=== PATIENT | male | born 1965 | race Caucasian/White ===

== ENCOUNTER 2016-11-20 22:08 | Emergency (ER) | payer SELFPAY ==
[~2016-11-20] VITALS: Ht 175.3 cm; Wt 80.8 kg
[2016-11-20 22:58] LABS: HEMATOCRIT 47.2 % (38.0-50.0); MCH 31.4 PG (29.0-34.0); MCV 89.9 FL (86-99); MEAN PLAT.VOLUME 9.1 uM^3 (9.0-12.4); PLATELET COUNT 246 K/uL (156-360); RBC DIS.WIDTH-CV 12.4 % (11.8-14.6); RBC DIS.WIDTH-SD 40.8 % (39-53); RED BLOOD COUNT 5.25 M/uL (4.00-5.50); WHITE BLOOD COUNT 7.9 K/uL (4.1-10.2)
[2016-11-20 23:02] LABS: CHLORIDE 109 mEq/L (99-109); POTASSIUM 3.8 mEq/L (3.7-5.4); SODIUM 140 mEq/L (136-147)
[2016-11-20 23:05] LABS: GLUCOSE 92 mg/dL (70-99)
[2016-11-20 23:06] LABS: ANION GAP 12 MEQ/L (2-14); TOTAL BILIRUBIN 0.4 mg/dL (0.0-1.0)
[2016-11-20 23:07] LABS: SERUM ETHYL ALCOHOL 192 mg/dL
[2016-11-20 23:08] LABS: ALKALINE PHOSPHATASE 97 IU/L (3-129); GFR ESTIMATE (CALCULATED) > 59 mL/min/
[2016-11-20 23:09] LABS: UREA NITROGEN (BUN) 11 mg/dL (9-23)
[2016-11-20 23:16] LABS: ADD MIUA? NO; BILIRUBIN NEGATIVE; BLOOD NEGATIVE; COLOR YELLOW ((YELLOW)); GLUCOSE (STRIP) NEGATIVE; KETONES NEGATIVE; LEUKOCYTES NEGATIVE; NITRITE NEGATIVE; PROTEIN (STRIP) NEGATIVE; SPECIFIC GRAVITY 1.013 (1.000-1.030); UCUL ADDED? NO; UROBILINOGEN 0.2 MG/DL (0.2-1.0)
[2016-11-20 23:37] LABS: AMPHETAMINE NEGATIVE (500 ng/mL); BARBITURATES NEGATIVE (200 ng/mL); BENZODIAZEPINES NEGATIVE (150 ng/mL); COCAINE NEGATIVE (150 ng/mL); INTERNAL CONTROLS VALID? YES; METHADONE NEGATIVE (200 ng/mL); METHAMPHETAMINE NEGATIVE (500 ng/mL); OPIATES (MORPHINE) NEGATIVE (100 ng/mL); OXYCODONE NEGATIVE (100 ng/mL); PHENCYCLIDINE NEGATIVE (25 ng/mL); PROPOXYPHENE NEGATIVE (300 ng/mL); THC CANNABINOIDS NEGATIVE (50 ng/mL); TRICYCLIC ANTIDEPRESSANTS NEGATIVE (300 ng/mL)
[2016-11-21 02:38] VITALS: BP 122/76
== END 2016-11-21 02:43 | disposition home or self-care (01) ==
LOC: EME 22:08
PROVIDERS: Emergency Medicine
DX: F32.9 Major depressive disorder, single episode, unspecified (principal); F10.129 Alcohol abuse with intoxication, unspecified; F43.23 Adjustment disorder with mixed anxiety and depressed mood; Z63.4 Disappearance and death of family member; F17.200 Nicotine dependence, unspecified, uncomplicated; Y90.6 Blood alcohol level of 120-199 mg/100 ml
CPT/HCPCS: 80053; 81003; 85027; 90837; 99281; 99285; G0480

== ENCOUNTER 2016-12-13 16:24 | Emergency (ER) | payer SELFPAY ==
[2016-12-13 16:54] LABS: EOSINOPHIL (%) 0.1 % (0-5); HEMATOCRIT 45.2 % (38.0-50.0); IMMATURE GRANULOCYTE (%) 0.2 % (0.0-0.7); IMMATURE GRANULOCYTE COUNT 0.3 K/uL; LYMPHOCYTE COUNT 1.2 K/uL (1.0-2.8); MCH 31.6 PG (29.0-34.0); MCHC 35.4 G/DL (30.0-36.0); MCV 89.3 FL (86-99); MEAN PLAT.VOLUME 9.1 uM^3 (9.0-12.4); MONOCYTE (%) 5.5 % (3-12); MONOCYTE COUNT 0.9 K/uL (0-0.8); NEUTROPHIL COUNT 14.5 K/uL (1.8-6.4); PLATELET COUNT 255 K/uL (156-360); RBC DIS.WIDTH-CV 12.4 % (11.8-14.6); RBC DIS.WIDTH-SD 39.6 % (39-53); RED BLOOD COUNT 5.06 M/uL (4.00-5.50)
[2016-12-13 16:57] LABS: WHITE BLOOD COUNT 16.6 K/uL (4.1-10.2)
[2016-12-13 17:04] LABS: CHLORIDE 106 mEq/L (99-109); SODIUM 138 mEq/L (136-147)
[2016-12-13 17:05] LABS: AMYLASE 66 IU/L (1-118)
[2016-12-13 17:06] LABS: GLUCOSE 121 mg/dL (70-99)
[2016-12-13 17:08] LABS: ANION GAP 10 MEQ/L (2-14); TOTAL BILIRUBIN 0.3 mg/dL (0.0-1.0)
[2016-12-13 17:09] LABS: SERUM ETHYL ALCOHOL < 10 mg/dL
[2016-12-13 17:10] LABS: ALKALINE PHOSPHATASE 112 IU/L (3-129); GFR ESTIMATE (CALCULATED) > 59 mL/min/
[2016-12-13 17:11] LABS: UREA NITROGEN (BUN) 10 mg/dL (9-23)
[2016-12-13 17:12] LABS: DIRECT BILIRUBIN 0.2 mg/dL (0.0-0.3)
[2016-12-13 17:14] LABS: LIPASE 30 U/L (1.0-51.0)
[2016-12-13 17:15] VITALS: BP 167/93
[2016-12-13 17:39] LABS: BILIRUBIN NEGATIVE; BLOOD NEGATIVE; COLOR YELLOW ((YELLOW)); GLUCOSE (STRIP) NEGATIVE; KETONES NEGATIVE; LEUKOCYTES NEGATIVE; NITRITE NEGATIVE; PH, URINE 5.5 (5-8); PROTEIN (STRIP) TRACE; SPECIFIC GRAVITY 1.021 (1.000-1.030); UROBILINOGEN 0.2 MG/DL (0.2-1.0)
[2016-12-13 17:41] LABS: ADD MIUA? NO; UCUL ADDED? NO
[2016-12-13 18:02] LABS: AMPHETAMINE NEGATIVE (500 ng/mL); BARBITURATES NEGATIVE (200 ng/mL); BENZODIAZEPINES NEGATIVE (150 ng/mL); COCAINE NEGATIVE (150 ng/mL); INTERNAL CONTROLS VALID? YES; METHADONE NEGATIVE (200 ng/mL); METHAMPHETAMINE NEGATIVE (500 ng/mL); OPIATES (MORPHINE) NEGATIVE (100 ng/mL); OXYCODONE NEGATIVE (100 ng/mL); PHENCYCLIDINE NEGATIVE (25 ng/mL); PROPOXYPHENE NEGATIVE (300 ng/mL); THC CANNABINOIDS NEGATIVE (50 ng/mL); TRICYCLIC ANTIDEPRESSANTS NEGATIVE (300 ng/mL)
== END 2016-12-13 22:34 | disposition short-term general hospital (02) ==
LOC: TRA → EME 16:24 → TRA 22:34
PROVIDERS: Emergency Medicine
DX: S52.501B Unspecified fracture of the lower end of right radius, initial encounter for open fracture type I or II (principal); S52.601B Unspecified fracture of lower end of right ulna, initial encounter for open fracture type I or II; S22.31XA Fracture of one rib, right side, initial encounter for closed fracture; S82.54XA Nondisplaced fracture of medial malleolus of right tibia, initial encounter for closed fracture; M79.645 Pain in left finger(s); W11.XXXA Fall on and from ladder, initial encounter; Y93.89 Activity, other specified
CPT/HCPCS: 70450; 71260; 72125; 72129; 72132; 73080; 73090; 73110; 73130; 73610; 74177; 80048; 80076; 81003; 82150; 83690; 85025; 86850; 86900; 86901; 99281; 99285; G0480; J0690; J0744; J1170; J2405; J3010; J3370; J7030

== ENCOUNTER 2017-02-22 11:16 | Inpatient (IN) | payer OTHER ==
[~2017-02-22] VITALS: Ht 175.3 cm; Wt 78.4 kg
[2017-02-22 12:10] LABS: HEMATOCRIT 45.7 % (38.0-50.0); MCH 29.4 PG (29.0-34.0); MCHC 34.4 G/DL (30.0-36.0); MCV 85.6 FL (86-99); MEAN PLAT.VOLUME 9.2 uM^3 (9.0-12.4); PLATELET COUNT 253 K/uL (156-360); RBC DIS.WIDTH-CV 13.7 % (11.8-14.6); RBC DIS.WIDTH-SD 42.6 % (39-53); RED BLOOD COUNT 5.34 M/uL (4.00-5.50); WHITE BLOOD COUNT 10.7 K/uL (4.1-10.2)
[2017-02-22 12:17] LABS: AMPHETAMINE NEGATIVE (500 ng/mL); BARBITURATES NEGATIVE (200 ng/mL); BENZODIAZEPINES NEGATIVE (150 ng/mL); COCAINE PRESUMPTIVE POSITIVE (150 ng/mL); METHADONE NEGATIVE (200 ng/mL); METHAMPHETAMINE NEGATIVE (500 ng/mL); OPIATES (MORPHINE) NEGATIVE (100 ng/mL); OXYCODONE NEGATIVE (100 ng/mL); PHENCYCLIDINE NEGATIVE (25 ng/mL); PROPOXYPHENE NEGATIVE (300 ng/mL); THC CANNABINOIDS NEGATIVE (50 ng/mL); TRICYCLIC ANTIDEPRESSANTS NEGATIVE (300 ng/mL)
[2017-02-22 12:18] LABS: ADD MEDTOX COMMENT Y; INTERNAL CONTROLS VALID? YES
[2017-02-22 12:22] LABS: CHLORIDE 113 mEq/L (99-109); POTASSIUM 4.1 mEq/L (3.7-5.4)
[2017-02-22 12:23] LABS: SODIUM 144 mEq/L (136-147)
[2017-02-22 12:24] LABS: GLUCOSE 92 mg/dL (70-99)
[2017-02-22 12:26] LABS: ANION GAP 13 MEQ/L (2-14)
[2017-02-22 12:27] LABS: SERUM ETHYL ALCOHOL 282 mg/dL
[2017-02-22 12:28] LABS: GFR ESTIMATE (CALCULATED) > 59 mL/min/
[2017-02-22 12:30] LABS: UREA NITROGEN (BUN) 9 mg/dL (9-23)
[2017-02-22 12:31] LABS: SALICYLATE < 5.0 MG/DL (15-30)
[2017-02-22 21:29] VITALS: BP 127/79
[2017-02-22] MEDS ORDERED: BENADRYL50 MG PO (21:50)
[2017-02-22] MEDS ORDERED: TYLENOL REGULA325 MG PO (21:51)
[2017-02-23 08:14] VITALS: BP 157/84
[2017-02-23 15:57] VITALS: BP 159/96
[2017-02-23 19:25] VITALS: BP 170/93
[2017-02-24 08:09] VITALS: BP 133/86
[2017-02-24 15:22] VITALS: BP 144/81
[2017-02-25 07:50] VITALS: BP 122/82
[2017-02-25 15:21] VITALS: BP 125/78
[2017-02-26 09:23] VITALS: BP 102/62
[2017-02-26] MEDS ORDERED: TRAZODONE HCL50 MG PO (10:32)
[2017-02-26] MEDS ORDERED: CITALOPRAM HBR10 MG PO (10:32)
== END 2017-02-26 12:56 | disposition home or self-care (01) | DRG 881 ==
LOC: EME 11:16 → EDOF 20:24 → 1WEST 20:24
PROVIDERS: Emergency Medicine
DX: F32.9 Major depressive disorder, single episode, unspecified (principal); F14.10 Cocaine abuse, uncomplicated; F17.210 Nicotine dependence, cigarettes, uncomplicated; G47.00 Insomnia, unspecified; F14.90 Cocaine use, unspecified, uncomplicated; F10.10 Alcohol abuse, uncomplicated; Y90.8 Blood alcohol level of 240 mg/100 ml or more; Z72.89 Other problems related to lifestyle
CPT/HCPCS: 80048; 84999; 85027; 90839; 97150 GO; 97166 GO; 99281; 99285; G0480

== ENCOUNTER 2017-03-21 13:27 | Emergency (ER) | payer OTHER ==
[~2017-03-21] VITALS: Ht 175.3 cm; Wt 78.8 kg
[~2017-03-21 13:27] MED LIST: BENADRYL50 MG PO; CITALOPRAM HBR10 MG PO; TRAZODONE HCL50 MG PO; TYLENOL REGULA325 MG PO
[2017-03-21 15:12] VITALS: BP 139/81
== END 2017-03-21 15:25 | disposition home or self-care (01) ==
LOC: EXP 13:27 → EME 13:27 → EXP 15:25
PROC: 2W3GX1Z Immobilization of Right Thumb using Splint (ICD-10-PCS; principal; 2017-03-21)
DX: S52.91XD Unspecified fracture of right forearm, subsequent encounter for closed fracture with routine healing (principal); S62.001D Unspecified fracture of navicular [scaphoid] bone of right wrist, subsequent encounter for fracture with routine healing; F17.200 Nicotine dependence, unspecified, uncomplicated; W11.XXXD Fall on and from ladder, subsequent encounter; Z85.118 Personal history of other malignant neoplasm of bronchus and lung
CPT/HCPCS: 80053; 83690; 85027; 99281; 99284

== ENCOUNTER 2018-01-18 18:38 | Emergency (ER) | payer OTHER ==
[~2018-01-18] VITALS: Ht 175.3 cm; Wt 80.3 kg
[2018-01-18 20:50] VITALS: BP 172/98
== END 2018-01-18 20:51 | disposition home or self-care (01) ==
LOC: EME 18:38
DX: F33.1 Major depressive disorder, recurrent, moderate (principal); J44.9 Chronic obstructive pulmonary disease, unspecified; F17.200 Nicotine dependence, unspecified, uncomplicated; Z85.118 Personal history of other malignant neoplasm of bronchus and lung
CPT/HCPCS: 90839; 99281; 99285